=== PATIENT | female | born 1985 | race Caucasian/White ===

== ENCOUNTER 2017-01-17 08:16 | Emergency (ER) | payer BC ==
[~2017-01-17 08:16] MED LIST: ADVAIR 250-501 EACH IH; ALBUTEROL17 GM INH; ATARAX PO; BENADRYL PO; BENADRYL25 M1 PO; BENTYL20 MG PO; DICLOFENAC PO; EPIPEN0.3 MG/0.1 IM; FAMOTIDINE PO; FLEXERIL PO; FLEXERIL10 MG PO; HYDROCODONE/APA1 T16 PO; IBUPROFEN PO; LEVAQUIN PO; MEDROL DOSEPAK4 MG PO; MOTRIN400 M1 PO; PEPCID AC20 M2 PO; PHENERGAN25 M1 PO; PREDNISONE PO; PREDNISONE50 MG PO; ROBITUSSIN A-C-S1 ML PO; SINGULAIR PO; TAGAMET PO; TYLENOL #3 PO; TYLENOL325 M1 PO; ULTRAM PO; ZITHROMAX PO
[2017-01-17] MEDS ORDERED: PREDNISONE10 MG PO (08:24)
[2017-01-17] MEDS ORDERED: METAXALL800 MG (08:24)
== END 2017-01-17 09:53 | disposition home or self-care (01) ==
LOC: SED 08:16
DX: M54.41 Lumbago with sciatica, right side (principal); M54.16 Radiculopathy, lumbar region; Z88.0 Allergy status to penicillin; Z91.010 Allergy to peanuts
CPT/HCPCS: 96372; 99283; J1885